=== PATIENT | male | born 1965 | race Two or more races ===

== ENCOUNTER 2025-01-07 06:19 | Inpatient (IN) | payer OTHER ==
[~2025-01-07] VITALS: Ht 170.2 cm; Wt 92.6 kg
[~2025-01-07 06:19] MED LIST: ASPI81CH59 PO; CHOL20004 PO; FOLI-119 PO; IBUP-1456 PO; LEFL20TA PO; METF-372 PO
[2025-01-07] MEDS ORDERED: KETOROLAC TROMETH 30 MG/ML 1ML VIAL ONE ×2 (06:57→07:01)
[2025-01-07] MEDS ORDERED: MORPHINE SULF PF 5 MG/10 ML VIAL ONE ×2 (06:57→07:01)
[2025-01-07] MEDS ORDERED: KETAMINE 50mg/ML 1ml syringe ONE ×2 (07:00→09:04)
[2025-01-07] MEDS ORDERED: MIDAZOLAM HCL 2MG/2ML 2ml VIAL (1mg/ml) ONE ×2 (07:00→07:42)
[2025-01-07] MEDS ORDERED: SODIUM CHLORIDE LOCK 10 ML ONE (07:01)
[2025-01-07] MEDS ORDERED: fentaNYL CITRATE 100 MCG/2 ML VL ONE (07:01)
[2025-01-07] MEDS ORDERED: BUPIVACAINE/DEXTROSE MPF 0.75% 2 ML AMP IT ONE (07:01)
[2025-01-07] MEDS ORDERED: GLYCOPYRROLATE 0.2 MG/ML 1ML VIAL ONE (07:01)
[2025-01-07] MEDS ORDERED: ONDANSETRON HCL 4 MG/2 ML VIAL ONE (07:01)
[2025-01-07] MEDS ORDERED: PROPOFOL 10 MG/ML 20 ML IV ONE (07:01)
[2025-01-07] MEDS: CEFEPIME 1GM/50ML 50 ML IV ONE (07:16)
[2025-01-07] MEDS: ceFAZolin 2 GM/D5W50ml 50 ML IV ONE (07:16)
[2025-01-07] MEDS: TRANEXAMIC ACID 20 ML ONE (07:18)
[2025-01-07] MEDS: VANCOMYCIN HCL 1000 MG VL ONE (07:55)
--- NOTE | 2025-01-07 09:56 | DVHOP2 ---
Operative Report - 2 Report Details Date: 01/07/25 Preop Diagnosis: Right hip degenerative arthritis secondary to rheumatoid arthritis Postop Diagnosis: Same Surgeon: Demetrice George MD Cut Out And Marking Machine Operator: Dorothy YOUNGBLOOD Anesthesiologist: Larry Anesthesia: Regional Drains: Anam closed wound suction Implant: Sharyn Z one stem size three, 36 ceramic head plus three, size 50 G7 cup, one acetabular screw, flat liner Consent: The patient was informed of the risks and benefits of the procedure. These include but are not limited to complications of anesthesia, postoperative infection, incomplete relief of symptoms, recurrence of symptoms, damage to blood vessels, nerves and tendons, deep venous thrombosis, pulmonary embolism and possible need for repeat surgery in the future. Complications: None Estimated Blood Loss: 100 cc Fluids: See anesthesia record Findings: Denuded cartilage eburnated bone, extensive osteophytes at the femoral head and acetabulum Indications for Surgery: Right hip degenerative arthritis secondary to rheumatoid arthritis with severe pain and functional impairment despite non op management Name of Procedure Performed Right total hip arthroplasty Procedure Details Procedure Details: The patient was brought to the operating room and given spinal anesthetic with adequate analgesia obtained. The patient was positioned lateral decubitus with the operative side up, stabilized with hip positioners. Axillary roll applied and lower extremities well-padded. Preop patient received IV Ancef, cefepime and IV tranexamic acid. Surgical timeout was performed verifying patient, laterality and procedure. The hip and lower extremity were prepped and draped in sterile fashion. Incision was made over the greater trochanter. Subcutaneous dissection and hemostasis were performed with Bovie and aqua mantis. I identified the fascia which was incised with Bovie and Charnley retractor inserted. I identified the gluteus medius that was split at the junction of its anterior and middle thirds with Bovie then incised off the anterior greater trochanter. I incised the anterior gluteus minimus which was elevated off the capsule. I elevated the reflected head of the rectus. I then performed anterior capsulectomy with Bovie. I extended capsular incision posterior medially and superior laterally. The head was dislocated. Femoral neck cut was made with saw and head removed. Head diameter was calipered on the back table. I adjusted retractors to expose the acetabulum. I then began reaming sequentially paying attention to inclination and version as I went. I trialed which was stable so acetabular implant was brought into the field and tapped into the acetabulum with good fixation achieved. I then brought up the flat liner which was spun to make sure there was no soft tissue entrapment then tapped in and stability verified. I used osteotomes to remove extensive osteophytes at the acetabulum. I then brought my attention to the proximal femur. The leg was placed in the sterile bag anteriorly. I cleaned up soft tissue at the greater trochanter shoulder with Bovie. I then used a rongeur to clip the lateral neck. I then used a box osteotome, canal finder and lateralizing rasp. I sequentially broached to size 1. I revised the femoral neck cut with calcar planer. I trialed with a [0] neck length and [36] head which was stable. Intraoperative AP pelvis x-ray was obtained to verify length, offset and implant size. I decided the patient needed to go up one stem size. In addition I had excess inclination at the cup so the hip was dislocated and the broach removed. I then removed the liner and acetabular cup. Attempts to remove the liner in situ were unsuccessful so I removed the liner on the back table. I then irrigated the acetabulum. I again inserted the acetabular cup and decided to use a screw for additional fixation. Cap was removed. I drilled measured with depth gauge and applied a screw. I then obtained another x-ray to verify inclination and version. I then inserted another flat liner polyethylene spinning it to make sure there was no impingement and tapped it in. I then brought my attention to the proximal femur. I had previously broached up to a size two. I then inserted the stem. I again trialed and decided on the +3.5 neck length. I cleaned and dried the Stewart taper and tapped on the head. The hip was again reduced and tested for stability which was good. I irrigated with bacisurge. I placed a 2 grams of vancomycin in the deep and superficial wound. I repaired the minimus and medius to the anterior greater trochanter with #[5] FiberWire in running fashion . I oversewed the repair with 0 Vicryl. I repaired the fascia with #1 Ethibond interrupted [id number]. Deep subcutaneous tissue was closed with 0 Vicryl. Superficial subcutaneous tissue was closed with 2-0 Vicryl. The skin was closed with иван. I then applied the Anam closed wound suction. Patient tolerated the procedure well and was brought to the recovery room in stable condition. Condition Stable Disposition Still a Patient DEMETRICE GEORGE MD Jan 07, 2025 09:56
[2025-01-07 09:57] VITALS: PULSE 89; RESP 12; O2SAT 96
--- NOTE | 2025-01-07 09:58 | DVH ---
CLINICAL INDICATION: INTRAOP TECHNIQUE: 1 radiographic views of the pelvis were obtained. Comparison: XR HIP BILATERAL W/ PELVIS - 5 VW on DOS: 05/17/24, MR HIP RIGHT W/O on DOS: 01/09/24 FINDINGS/IMPRESSION: Postsurgical changes from right hip arthroplasty with right femoral neck fracture. The femoral component of right hip arthroplasty is missing.
[2025-01-07] MEDS ORDERED: ONDANSETRON HCL 4 MG/2 ML VIAL IV PRN ×2 (10:00→10:15)
[2025-01-07] MEDS: ACCU-CHEK COMFORT CURVE STRIP VI ONE (10:15)
[2025-01-07] MEDS ORDERED: diphenhydrAMINE HCL 50 MG/1 ML VL IV PRN (10:15)
[2025-01-07] MEDS ORDERED: NALOXONE HCL 0.4 MG/ML VIAL IV PRN (10:15)
[2025-01-07] MEDS ORDERED: ACETAMINOPHEN IV 1000 MG/100ML (10MG/ML) IV ONE (10:15)
[2025-01-07] MEDS ORDERED: KETOROLAC TROMETH 30 MG/ML 1ML VIAL IV PRN (10:15)
[2025-01-07] MEDS: BUPIVACAINE HCL 0 ML ONE (10:28)
--- NOTE | 2025-01-07 10:31 | DVH ---
CLINICAL INDICATION: postop TECHNIQUE: XY PELVIS AP Comparison: XR HIP BILATERAL W/ PELVIS - 5 VW on DOS: 05/17/24 FINDINGS/IMPRESSION: : There is no evidence of acute fracture or dislocation. Expected findings post right hip arthroplasty. Severe degenerative changes of the left hip.
[2025-01-07] MEDS: SODIUM CHLORIDE 0.9% 1,000 ML IV SCH (11:30)
[2025-01-07] MEDS: ACETAMINOPHEN 325 MG TAB PO SCH (11:52)
[2025-01-07] MEDS: KETOROLAC TROMETH 30 MG/ML 1ML VIAL IV SCH (11:53)
[2025-01-07] MEDS: PREGABALIN 25 MG CAP PO SCH (11:53)
[2025-01-07] MEDS: ceFAZolin 2 GM/D5W50ml 50 ML IV SCH (14:00)
[2025-01-07 17:00] VITALS: BP 113/84; PULSE 79; RESP 18; TEMP 97.8; O2SAT 95
[2025-01-07 20:00] VITALS: BP 109/74; PULSE 69; PULSE 83; RESP 18; O2SAT 95
[2025-01-07 21:00] VITALS: BP_SYST 109; BP_SYST 115; BP_DIAS 64; BP_DIAS 74; PULSE 65; PULSE 66; RESP 18; TEMP 97.9; O2SAT 96; O2SAT 97
[2025-01-07 22:00] VITALS: BP 90/55; PULSE 63; RESP 16; O2SAT 95
[2025-01-07 23:00] VITALS: BP 98/61; PULSE 59; RESP 16; O2SAT 89
[2025-01-08] VITALS (27 sets, daily range): BP systolic 91–131; BP diastolic 57–83; PULSE 56–132; RESP 16–19; TEMP 97.4–99.2; O2SAT 89–100
[2025-01-08 06:56] LABS: Hematocrit 36.7 % (41.0-53.0); Hemoglobin 12.0 g/dL (13.5-17.5); Mean Corpuscular Hemoglobin 28.0 pg (28.0-32.0); Mean Corpuscular Volume 85.6 fL (80.0-100.0); Nucleated Red Blood Cells % 0.1 %
[2025-01-08 07:12] LABS: Anion Gap 9 (5-15); Carbon Dioxide 26 mmol/L (20-31); Potassium 4.2 mmol/L (3.5-5.1); Sodium 142 mmol/L (136-145)
[2025-01-08 07:13] LABS: Calcium 8.9 mg/dL (8.7-10.4)
[2025-01-08 07:16] LABS: Chloride 107 mmol/L (98-107)
[2025-01-08 07:18] LABS: BUN/Creatinine Ratio 9.5 (10.0-20.0); Glucose 88 mg/dL (74-106)
[2025-01-08 07:25] LABS: Blood Urea Nitrogen 6 mg/dL (9-23)
[2025-01-08] MEDS: APIXABAN 2.5 MG TAB PO SCH (09:30)
[2025-01-08] MEDS ORDERED: HYDROCORTISONE SOD SUCC 100 MG/2ML INJ VIAL IV ONE (13:05)
--- NOTE | 2025-01-08 15:24 | DVHDS2 ---
Discharge Summary Date of Admission Jan 07, 2025 at 10:11 Date of Discharge: Jan 08, 2025 Labs/Diagnostic Data: Laboratory Results Test 01/08/25 05:59 01/07/25 07:09 White Blood Count 8.0 10^3/uL (4.4-10.8) Red Blood Count 4.28 10^6/uL (4.5-5.90) Hemoglobin 12.0 g/dL (13.5-17.5) Hematocrit 36.7 % (41.0-53.0) Mean Corpuscular Volume 85.6 fL (80.0-100.0) Mean Corpuscular Hemoglobin 28.0 pg (28.0-32.0) Mean Corpuscular Hemoglobin Concent 32.7 g/dL (32.0-36.0) Red Cell Distribution Width 14.5 % (11.8-14.3) Platelet Count 149 10^3/uL (140-450) Mean Platelet Volume 11.0 fL (6.9-10.8) Neutrophils (%) (Auto) 57.1 % (37.0-80.0) Lymphocytes (%) (Auto) 25.3 % (10.0-50.0) Monocytes (%) (Auto) 13.4 % (0.0-12.0) Eosinophils (%) (Auto) 3.0 % (0.0-7.0) Basophils (%) (Auto) 1.2 % (0.0-2.0) Neutrophils # (Auto) 4.6 10 ^3/uL (1.6-8.6) Lymphocytes # (Auto) 2.0 10 ^3/uL (0.4-5.4) Monocytes # (Auto) 1.1 10 ^3/uL (0-1.3) Eosinophils # (Auto) 0.2 10 ^3/uL (0-0.8) Basophils # (Auto) 0.1 10 ^3/uL (0-0.2) Nucleated Red Blood Cells 0.1 % Sodium Level 142 mmol/L (136-145) Potassium Level 4.2 mmol/L (3.5-5.1) Chloride Level 107 mmol/L (98-107) Carbon Dioxide Level 26 mmol/L (20-31) Anion Gap 9 (5-15) Blood Urea Nitrogen 6 mg/dL (9-23) Creatinine 0.63 mg/dL (0.700-1.30) Glomerular Filtration Rate Calc 110 mL/min (>90) BUN/Creatinine Ratio 9.5 (10.0-20.0) Serum Glucose 88 mg/dL (74-106) Calcium Level 8.9 mg/dL (8.7-10.4) POC Glucose 87 mg/dl (70-106) Other Laboratory Tests 01/08/25 05:59 Brief Hx & Hospital Course: Patient was brought to the hospital yesterday to undergo a right total hip arthroplasty. He tolerated the procedure well without complications and was kept overnight for postoperative observation. Patient has remained medically stable denying any overnight events and reports that he was able to get up and walk with the help of physical therapy this morning and was able to get down the nice and back to his room albeit with some postoperative hip pain but did report feeling a lot of lightheadedness and dizziness when he was sitting back to his room but reports that he thinks it is because he has not really gotten up and walked since surgery, I would like to try walk again as he feels ready to go home. Patient was otherwise feeling well denying any other complaints or concerns during my evaluation and we will plan for discharge home if patient is able to walk with physical therapy this afternoon without any lightheadedness or dizziness. Condition at Discharge: Stable Final Diagnosis/Problems List Same Discharge Disposition: Home Discharge Instruct/Medications Diet: Regular Activity: See Comment Activity comment: Patient to remain weight-bearing as tolerated with the assistance of a walker Follow Up/Referral: I instructed the patient to follow up with our office in 10-14 days for his 1st postoperative evaluation Medications: Rx sent via our outpatient EMR system Scheduled Aspirin (Aspirin Low Dose), 81 MG PO DAILY, (Reported) Cholecalciferol (D3), 50 MCG PO DAILY, (Reported) Ibuprofen (Ibuprofen), 800 MG PO Q8HP, (Reported) Miscellaneous Medications Folic Acid (Folic Acid), 1 MG PO, (Reported) Leflunomide (Arava), 20 MG PO, (Reported) Metformin Hydrochloride (Metformin Hcl), 1,000 MG PO, (Reported) Discharge Statement: "Patient was advised to return to the ER or call 911 if any headaches, dizziness, shortness of breath, chest pain, abdominal pain, bleeding, fevers, or worsening of medical condition. Patient was counseled about treatment plan, medications, possible side effects, patientverbalized understanding. All questions were answered to the best of my ability. This discharge took greater then 30 minutes in planning, reviewing documentation, counseling the patient, and discussing with other team members." ASSESSMENT ASSESSMENT Assessment Same ZULMA OROPEZA Jan 08, 2025 15:24
--- NOTE | 2025-01-08 15:26 | DVHPN2 ---
Progress Note - Dictate Date Seen: Jan 08, 2025 Medical Necessity Reason Pt with a Central, PICC or Fol: No Subjective Patient was lying in bed comfortably during my evaluation reports some postoperative hip pain that is being well managed with the help of pain medication. Patient reports that he was only able to take a few steps at bedside yesterday but was able to get up and walk with the help of physical therapy and his walker this morning but was able to get down the nice and back to his bed albeit with some postoperative hip pain as well as some lightheadedness and dizziness towards the end of his walk. Patient reports that once he was able to sit down his symptoms resolved and has been feeling fine since and would like to try and walk with physical therapy again as he feels better and would like to go home. vital signs Vital Sign Date Time Temp Pulse Resp B/P (MAP) Pulse Ox O2 Delivery O2 Flow Rate FiO2 01/08/25 14:28 65 18 01/08/25 13:28 95 01/08/25 13:00 98.0 131/83 (99) 98.0 01/08/25 08:00 Room Air* 0 21 Total Intake and Output 01/07/25 01/07/25 01/08/25 15:00 23:00 07:00 Intake Total 120 ml Output Total 600 ml Balance -480 ml medications Current Medications Medications Dose Ordered Sig/Kath Route Start Time Stop Time Status Last Admin Dose Admin Metformin HCl 1,000 mg DAILY PO 01/07/25 10:00 01/08/25 09:30 1,000 MG Pregabalin 50 mg BID PO 01/07/25 10:00 01/08/25 09:30 50 MG Apixaban 2.5 mg BID PO 01/08/25 10:00 02/12/25 09:59 01/08/25 09:30 2.5 MG Sodium Chloride 1,000 ml @ 125 mls/hr Q8H IV 01/07/25 11:30 01/08/25 10:40 125 MLS/HR Acetaminophen 650 mg Q6HP PO 01/07/25 12:00 01/08/25 13:13 650 MG Ketorolac Tromethamine 15 mg Q6HR IV 01/07/25 12:00 01/12/25 11:59 01/08/25 13:14 15 MG Ondansetron HCl 4 mg Q4HP PRN IV 01/07/25 10:00 Oxycodone HCl 5 mg Q4HP PRN PO 01/07/25 11:30 01/08/25 07:56 5 MG Oxycodone HCl 10 mg Q4HP PRN PO 01/07/25 11:30 Diphenhydramine HCl 25 mg Q4HP PRN IV 01/07/25 10:15 objective A&O x4 in no acute distress Hip range of motion grossly limited with pain on movement Anam dressing clean, dry, intact, and maintaining suction No distal edema or calf tenderness to palpation Neurovascularly intact with cap refill less than 2 seconds laboratory and microbiology Laboratory Tests 01/08/25 05:59 Test 01/08/25 05:59 Range/Units Serum Glucose 88 74-106 mg/dL Assessment/Plan Patient to be discharged home if he is able to walk stable with the help of physical therapy and a walker without any lightheadedness or dizziness. If patient continues to experience symptoms we will have him stay another day for observation, but if otherwise asymptomatic can be discharged home. I advised the patient to follow up with our office in 10-14 days for his 1st postoperative evaluation and to call our office if he has any further questions or concerns. I also advised the patient to maintain his dressings clean, dry, intact, and maintaining suction. Rx sent via our outpatient EMR system. Patient understood and agreed. Plan discussed with: Patient, Spouse OROPEZA,JENCARYN YOUNGBLOOD Jan 08, 2025 15:26
[2025-01-09 00:38] VITALS: BP 123/69; PULSE 62; RESP 18; TEMP 97.9; O2SAT 96
[2025-01-09 04:50] VITALS: BP 144/89; PULSE 76; RESP 19; TEMP 98.4; O2SAT 94
--- NOTE | 2025-01-09 07:36 | DVHPN2 ---
Progress Note - Dictate Date Seen: Jan 09, 2025 Medical Necessity Reason Pt with a Central, PICC or Fol: No Subjective Patient was lying in bed comfortably during my evaluation reports some continue postoperative hip pain that is being well managed with the help of pain medication. Patient reports that he was able to walk with physical therapy and his walker and was able to get down the nice and back to his bed albeit with some postoperative hip pain and very minimal dizziness at the end of his walk. Patient notes that he does feel better this morning and would like to try and get up and walk as he would like to go home today. vital signs Vital Sign Date Time Temp Pulse Resp B/P (MAP) Pulse Ox O2 Delivery O2 Flow Rate FiO2 01/09/25 04:50 98.4 76 19 144/89 (107) 94 98.4 01/08/25 20:00 Room Air* 0 21 medications Current Medications Medications Dose Ordered Sig/Kath Route Start Time Stop Time Status Last Admin Dose Admin Metformin HCl 1,000 mg DAILY PO 01/07/25 10:00 01/08/25 09:30 1,000 MG Pregabalin 50 mg BID PO 01/07/25 10:00 01/08/25 20:58 50 MG Apixaban 2.5 mg BID PO 01/08/25 10:00 02/12/25 09:59 01/08/25 20:58 2.5 MG Sodium Chloride 1,000 ml @ 125 mls/hr Q8H IV 01/07/25 11:30 01/09/25 03:36 125 MLS/HR Acetaminophen 650 mg Q6HP PO 01/07/25 12:00 01/09/25 05:20 650 MG Ketorolac Tromethamine 15 mg Q6HR IV 01/07/25 12:00 01/12/25 11:59 01/09/25 05:21 15 MG Ondansetron HCl 4 mg Q4HP PRN IV 01/07/25 10:00 Oxycodone HCl 5 mg Q4HP PRN PO 01/07/25 11:30 01/08/25 07:56 5 MG Oxycodone HCl 10 mg Q4HP PRN PO 01/07/25 11:30 01/09/25 03:37 10 MG Diphenhydramine HCl 25 mg Q4HP PRN IV 01/07/25 10:15 objective A&O x4 in no acute distress Hip range of motion grossly limited with pain on movement Anam dressing clean, dry, intact, and maintaining suction No distal edema or calf tenderness to palpation Neurovascularly intact with cap refill less than 2 seconds laboratory and microbiology Laboratory Tests 01/08/25 05:59 Test 01/08/25 05:59 Range/Units Serum Glucose 88 74-106 mg/dL Assessment/Plan Patient to be discharged home after one more session of physical therapy as long as patient remains medically stable and is otherwise feeling well. I advised the patient to follow up with our office in 10-14 days for his 1st postoperative evaluation and to call our office if he has any further questions or concerns. I also advised the patient to maintain his dressings clean, dry, intact, and maintaining suction. Rx sent via our outpatient EMR system. Patient understood and agreed. Plan discussed with: Patient ZULMA OROPEZA Jan 09, 2025 07:36
[2025-01-09 08:00] VITALS: PULSE 65; RESP 18; O2SAT 95
[2025-01-09 09:00] VITALS: BP 127/77; PULSE 78; RESP 18; TEMP 98.2; O2SAT 97
[2025-01-09 10:27] VITALS: BP 121/78; PULSE 65; TEMP 36.8; O2SAT 95
== END 2025-01-09 11:47 | disposition home or self-care (01) | DRG 470 ==
LOC: SUR 06:19 → OVERFLOW 10:11 → TELE-EAST 13:24
PROVIDERS: ADMIT Orthopaedic Surgery; ATTEND Anesthesiology
PROC: 0SR903Z Replacement of Right Hip Joint with Ceramic Synthetic Substitute, Open Approach (ICD-10-PCS; principal; 2025-01-07 07:15)
DX: M16.11 Unilateral primary osteoarthritis, right hip (principal); M06.9 Rheumatoid arthritis, unspecified; M25.751 Osteophyte, right hip; Z79.899 Other long term (current) drug therapy
CPT/HCPCS: 36415; 72170; 73501; 80048; 82962; 85025; 86850; 86900; 86901; 97110; 97116; 97162; G0378; J1885; J2250; J2405; J2704; J3490